=== PATIENT | male | born 1990 | race Caucasian/White ===

== ENCOUNTER 2019-06-20 18:24 | Emergency (ER) | payer OTHER ==
[~2019-06-20] VITALS: Ht 180.3 cm; Wt 83.9 kg
[~2019-06-20 18:24] MED LIST: CEPH500 PO; HYDACE5 PO; METPHE20CR
== END 2019-06-20 20:29 | disposition home or self-care (01) ==
LOC: ER 18:24
DX: S43.102A Unspecified dislocation of left acromioclavicular joint, initial encounter (principal); V00.131A Fall from skateboard, initial encounter; Z88.0 Allergy status to penicillin; Z79.899 Other long term (current) drug therapy; F17.200 Nicotine dependence, unspecified, uncomplicated
CPT/HCPCS: 73000; 73030; 99283-25